=== PATIENT | male | born 1960 | race African-American/Black ===

== ENCOUNTER → 2019-05-18 | Outpatient (CLI) | payer OTHER ==
--- NOTE | 2019-05-18 13:52 | Diagnostic Imaging Report ---
EXAM: CT right elbow without contrast INDICATION: Elbow pain. Injury. Swelling. Sprain COMPARISON: None. TECHNIQUE: Right elbow was scanned utilizing a multidetector helical scanner without administration of IV contrast. Coronal and sagittal reformations were obtained. Routine protocol was performed. IV CONTRAST: None ORAL CONTRAST: None COMPLICATIONS: None RADIATION DOSE: Total DLP: 151 mGy*cm Estimated effective dose: (DLP x 0.015 x size factor) mSv CTDIvol has been reviewed. It is below the limits set by the Radiation Protocol Committee (RPC). Dose modulation, iterative reconstruction, and/or weight based adjustment of the mA/kV was utilized to reduce the radiation dose to as low as reasonably achievable. FINDINGS: There is no acute fracture, subluxation or avascular necrosis. Scattered degenerative changes are seen. There is a small posterior proximal ulnar bone spur. No osseous erosion. Mild soft tissue swelling about the elbow. Physiologic amount of fluid in the elbow joint No loose intra-articular body. No radiopaque foreign body. The visualized muscles are normal in size and morphology. Impression: Mild degenerative arthrosis about the elbow. No acute fracture, subluxation or avascular necrosis. Signed by: Dr. Jc Vail M.D. on 05/18/2019 1:48 PM
== END ==
LOC: CT 11:13
PROVIDERS: ATTEND Family Medicine
DX: S83.91XD Sprain of unspecified site of right knee, subsequent encounter (principal)

== ENCOUNTER → 2019-06-09 | Outpatient (CLI) | payer OTHER ==
--- NOTE | 2019-06-09 13:15 | Diagnostic Imaging Report ---
TECHNIQUE: Magnetic resonance imaging of the RIGHT HAND was performed WITHOUT injected contrast. HISTORY: Right hand pain COMPARISON: None. FINDINGS: Bones: No visualized fracture line. Osseous contusion to the distal ulna, third metacarpal base, and first metacarpal head. Joints: No focal lesions are seen. Soft Tissues: Soft tissue swelling and edema throughout the dorsal and volar soft tissues. The flexor and extensor tendons are intact IMPRESSION: Soft tissue contusion/edema of the hand. Osseous contusion of the distal ulna, third metacarpal base and first metacarpal head. Signed by: Dr. Titi Nathan M.D. on 06/09/2019 1:12 PM
== END ==
LOC: MRI 08:26
PROVIDERS: ATTEND Family Medicine
DX: S63.91XD Sprain of unspecified part of right wrist and hand, subsequent encounter (principal)